=== PATIENT | female | born 1990 | race Caucasian/White ===

== ENCOUNTER 2017-10-10 14:25 | Inpatient (IN) | payer OTHER ==
[~2017-10-10] VITALS: Ht 157.5 cm; Wt 66.2 kg
[~2017-10-10 14:25] MED LIST: FERR1TAB24 PO; PREN1TAB52 PO
[2017-10-10] MEDS ORDERED: RINGERS SOLUTION,LACTATED 1,000 ML IV ONE (15:22)
[2017-10-10] MEDS ORDERED: OXYTOCIN 30 UNITS/LACT RINGERS 500 ML IV ONE (15:34)
[2017-10-10] MEDS ORDERED: RINGERS SOLUTION,LACTATED 1,000 ML IV PRN (15:34)
[2017-10-10] MEDS ORDERED: MAGNESIUM SULFATE 500 ML IV ONE (15:45)
[2017-10-10] MEDS ORDERED: MAGNESIUM SULFATE 4 GM/WATER 100 ML IV ONE ×2 (15:45)
[2017-10-10] MEDS ORDERED: CITRIC ACID/SODIUM CITRATE 30 ML SOLUTION UDCUP PO PRN (15:45)
[2017-10-10] MEDS ORDERED: TERBUTALINE SULFATE 1 MG/ML VIAL SQ ONE (15:45)
[2017-10-10] MEDS ORDERED: METOCLOPRAMIDE HCL 5 MG/ML 2 ML VIAL IVP PRN (15:45)
[2017-10-10] MEDS ORDERED: METHYLERGONOVINE MALEATE 0.2 MG/ML VIAL IM PRN (15:45)
[2017-10-10] MEDS ORDERED: TERBUTALINE SULFATE 1 MG/ML VIAL ONE (15:45)
[2017-10-10] MEDS ORDERED: LIDOCAINE HCL/PF 1% 30 ML VIAL INJ PRN (15:45)
[2017-10-10] MEDS ORDERED: MAGNESIUM SULFATE 2 GM/WATER 50 ML IV ONE (15:45)
[2017-10-10] MEDS: RINGERS SOLUTION,LACTATED 1,000 ML IV SCH ×2 (15:59→22:13)
[2017-10-10] MEDS ORDERED: CALCIUM GLUCONATE 100 MG/ML 10 ML IVP PRN (16:00)
[2017-10-10 16:04] LABS: BASOPHILS % (AUTO) 0.4 % (0.0-2.0); EOSINOPHILS % (AUTO) 1.6 % (1.0-6.0); HEMATOCRIT 29.7 % (36-46); HEMOGLOBIN 10.3 g/dL (12.0-16.0); LYMPHOCYTES # (AUTO) 2.1 K/uL (1.0-4.8); LYMPHOCYTES % (AUTO) 23.3 % (22.0-44.0); MEAN CORPUSCULAR HEMOGLOBIN 28.7 pg (26.0-34.0); MEAN CORPUSCULAR HGB CONC 34.6 G/dL (31.0-37.0); MEAN CORPUSCULAR VOLUME 83 fL (80-100); MONOCYTES # (AUTO) 0.8 K/uL (0.1-1.0); NEUTROPHILS # (AUTO) 5.9 K/uL (1.8-7.7); NEUTROPHILS % (AUTO) 65.7 % (40.0-70.0); PLATELET COUNT (AUTO)-OB 271 K/uL (150-450); RED BLOOD CELL COUNT(AUTO) 3.58 MIL/uL (4.00-5.20); RED CELL DISTRIBUTION WIDTH 13.4 % (11.5-14.5)
[2017-10-10] MEDS: BETAMETHASONE SOLUSPAN 6 MG/ML 5 ML VIAL IM SCH (16:08)
[2017-10-10] MEDS: AMPICILLIN SODIUM 2 GM/NS 100 ML IV SCH ×2 (16:14→22:13)
[2017-10-10] MEDS: MAGNESIUM SULFATE 500 ML IV SCH (16:21)
[2017-10-10 16:40] VITALS: BP 108/54
[2017-10-10] MEDS: OXYGEN THERAPY IH SCH (20:00)
[2017-10-11] MEDS: MAGNESIUM SULFATE 500 ML IV SCH (02:05)
[2017-10-11] MEDS: AMPICILLIN SODIUM 2 GM/NS 100 ML IV SCH ×4 (04:04→22:53)
[2017-10-11] MEDS: BETAMETHASONE SOLUSPAN 6 MG/ML 5 ML VIAL IM SCH (04:05)
[2017-10-11] MEDS: OXYGEN THERAPY IH SCH ×2 (08:00→20:00)
[2017-10-11] MEDS: RINGERS SOLUTION,LACTATED 1,000 ML IV SCH ×2 (14:06→22:18)
[2017-10-11] MEDS ORDERED: GUM MASTIC/STORAX/MSAL/ALCOHOL LIQUID 0.67 ML VIAL TP ONE (22:42)
[2017-10-12] MEDS: AMPICILLIN SODIUM 2 GM/NS 100 ML IV SCH ×4 (04:21→22:09)
[2017-10-12] MEDS: RINGERS SOLUTION,LACTATED 1,000 ML IV SCH ×2 (08:54→19:34)
[2017-10-13] MEDS: AMPICILLIN SODIUM 2 GM/NS 100 ML IV SCH ×2 (03:58→09:54)
[2017-10-13] MEDS: RINGERS SOLUTION,LACTATED 1,000 ML IV SCH (03:58)
[2017-10-13] MEDS ORDERED: OXYTOCIN 30 UNITS/LACT RINGERS 500 ML IV PRN ×2 (06:26→08:41)
[2017-10-13] MEDS ORDERED: ACETAMINOPHEN/CODEINE 300-30 MG TABLET PO PRN ×2 (12:00)
[2017-10-13] MEDS ORDERED: BENZOCAINE 20%/MENTHOL 56 GM SPRAY CANISTER TP PRN (12:00)
[2017-10-13] MEDS ORDERED: GLYCERIN/WITCH HAZEL LEAF 40 PADS JAR TP PRN (12:00)
[2017-10-13] MEDS ORDERED: LANOLIN 7 GM OINTMENT TP PRN (12:00)
[2017-10-13] MEDS: IBUPROFEN 800 MG TABLET PO SCH ×2 (12:07→18:03)
[2017-10-13] MEDS: MAGNESIUM HYDROXIDE SUSPENSION 30 ML UDCUP PO SCH (21:11)
[2017-10-14] MEDS: IBUPROFEN 800 MG TABLET PO SCH ×2 (01:03→07:53)
[2017-10-14] MEDS: MAGNESIUM HYDROXIDE SUSPENSION 30 ML UDCUP PO SCH (07:53)
[2017-10-14] MEDS ORDERED: RINGERS SOLUTION,LACTATED 1,000 ML IV ONE (10:49)
[2017-10-14] MEDS ORDERED: FentaNYL CITRATE-PF 100 MCG/2 ML VIAL ONE (11:05)
[2017-10-14] MEDS ORDERED: IBUP-2071 PO (14:24)
[2017-10-14] MEDS ORDERED: DSS100 PO (14:25)
[2017-10-14] MEDS ORDERED: FERR-89 PO (14:26)
== END 2017-10-14 15:05 | disposition home or self-care (01) | DRG 775 ==
LOC: OBSVTOIN 14:25 → 4S 14:25
PROVIDERS: ADMIT Obstetrics & Gynecology; ATTEND Obstetrics & Gynecology
PROC: 10E0XZZ Delivery of Products of Conception, External Approach (ICD-10-PCS; principal; 2017-10-13)
PROC: 0HQ9XZZ Repair Perineum Skin, External Approach (ICD-10-PCS; 2017-10-13)
DX: O60.14X0 Preterm labor third trimester with preterm delivery third trimester, not applicable or unspecified (principal); O70.0 First degree perineal laceration during delivery; Z3A.35 35 weeks gestation of pregnancy; Z37.0 Single live birth
CPT/HCPCS: 86850; 86900; 86901; J0290; J0702; J3010; J3105; J3475; J3490; J7120